=== PATIENT | female | born 1990 | race Caucasian/White ===

== ENCOUNTER 2022-10-26 13:00 | Emergency (ER) | payer OTHER, MEDICAID ==
[~2022-10-26] VITALS: Ht 175.3 cm; Wt 104.0 kg
[~2022-10-26 13:00] MED LIST: FAMO20TA44 PO; OMEP20CA15 PO; SUCR1ORA2 PO
[2022-10-26 13:08] VITALS: BP 103/62; PULSE 84; TEMP 97.8; O2SAT 97
[2022-10-26] MEDS ORDERED: CYCL-1 PO (16:09)
[2022-10-26] MEDS ORDERED: NAPR-56 PO (16:09)
[2022-10-26] MEDS ORDERED: diazepam inj 5 MG/ML inj. IM ONE (16:10)
[2022-10-26] MEDS ORDERED: ketorolac trometh inj. 60 MG/2 ML VIAL IM ONE (16:10)
[2022-10-26 16:22] VITALS: RESP 18
== END 2022-10-26 16:29 | disposition home or self-care (01) ==
LOC: ER 13:00
DX: M54.2 Cervicalgia (principal); Z79.899 Other long term (current) drug therapy; V89.2XXA Person injured in unspecified motor-vehicle accident, traffic, initial encounter; Y93.89 Activity, other specified; Y92.89 Other specified places as the place of occurrence of the external cause; Y99.8 Other external cause status
CPT/HCPCS: 96372; 99284; J1885; J3360

== ENCOUNTER 2023-07-05 16:56 | Emergency (ER) | payer MEDICAID, OTHER ==
[~2023-07-05] VITALS: Ht 175.3 cm; Wt 118.5 kg
[~2023-07-05 16:56] MED LIST changes: +CYCL-1 PO
[2023-07-05 17:06] VITALS: BP 128/72; PULSE 107; RESP 18; TEMP 97.8; O2SAT 98
[2023-07-05] MEDS ORDERED: HYDR-3965 PO (17:17)
== END 2023-07-05 17:41 | disposition home or self-care (01) ==
LOC: ER 16:57
DX: S00.31XA Abrasion of nose, initial encounter (principal); Z79.899 Other long term (current) drug therapy; Y08.89XA Assault by other specified means, initial encounter; Y93.89 Activity, other specified; Y92.89 Other specified places as the place of occurrence of the external cause; Y99.8 Other external cause status
CPT/HCPCS: 99283; 99285